=== PATIENT | male | born 1980 | race Caucasian/White ===

== ENCOUNTER 2017-02-20 09:31 | Observation (INO) | payer BC, OTHER ==
[~2017-02-20] VITALS: Ht 188 cm; Wt 170.0 kg
[~2017-02-20 09:31] MED LIST: CYCL-36 PO; IBUP-232 PO; LORT5TAB PO; Z.0.NO CURRENT MEDS
[2017-02-20 09:32] VITALS: BP 186/86; PULSE 56; RESP 20; TEMP 98.8; O2SAT 100
--- NOTE | 2017-02-20 09:40 | PD ---
HPI Chief Complaint: Cardiac Complaint Time Seen by Provider: 09:39 Travel History International Travel<30 days: No Contact w/Intl Traveler<30days: No Traveled to known affect area: No History of Present Illness HPI 36-year-old male came to the emergency room with history of left-sided chest pain on and off since 6:30 AM this morning. Patient is describing the pain as a sharp pulsating pain that comes and goes frequently lasting for a few seconds. No radiation of the pain. Patient is a smoker. Says the pain is slowly becoming more and more frequent. He's never had this kind of pain before. Blood pressure is stable. He is not on any medications. Patient was concerned because he has a strong family history of coronary artery disease including his father who had an KS at a very young age. Never had any coronary artery disease workup. No recent long distance travel or any prolonged immobilization due to surgery or otherwise. No past history of DVT or PE. No aggravating or relieving factor identified for the pain. [facility] Past Medical History Narrative Medical List of his past medical, surgical, social and family history is reviewed from the nursing note. Diminished Hearing: No Social History Alcohol Use: Yes (COUPLE TIMES PER WEEK) Tobacco Use: Yes (1 PACK PER WEEK) Substance Use: No Allergies-Medications (Allergen,Severity, Reaction): Coded Allergies: No Known Allergies (Verified , 02/20/17) Comments No known drug allergies. Reported Meds & Prescriptions Reported Meds & Active Scripts Active No Active Prescriptions or Reported Medications Narrative Medication List of his home medications reviewed from the nursing note Review of Systems Except as stated in HPI: all other systems reviewed are Neg Physical Exam Narrative GENERAL: Awake, alert, morbidly obese, anxious SKIN: Focused skin assessment warm/dry. HEAD: Atraumatic. Normocephalic. EYES: Pupils equal and round. No scleral icterus. No injection or drainage. ENT: No nasal bleeding or discharge. Mucous membranes pink and moist. NECK: Trachea midline. No JVD. CARDIOVASCULAR: Regular rate and rhythm. No murmur appreciated. RESPIRATORY: No accessory muscle use. Clear to auscultation. Breath sounds equal bilaterally. GASTROINTESTINAL: Abdomen soft, non-tender, nondistended. Hepatic and splenic margins not palpable. MUSCULOSKELETAL: No obvious deformities. No clubbing. No cyanosis. No edema. NEUROLOGICAL: Awake and alert. No obvious cranial nerve deficits. Motor grossly within normal limits. Normal speech. PSYCHIATRIC: Appropriate mood and affect; insight and judgment normal. Data Data Last Documented VS Vital Signs Date Time Temp Pulse Resp B/P Pulse Ox O2 Delivery O2 Flow Rate FiO2 02/20/17 09:54 98 Room Air 02/20/17 09:32 98.8 56 20 186/86 Orders Electrocardiogram (02/20/17 09:52) Basic Metabolic Panel (Bmp) (02/20/17 09:52) Ckmb (Isoenzyme) Profile (02/20/17 09:52) Complete Blood Count With Diff (02/20/17 09:52) Magnesium (Mg) (02/20/17 09:52) Prothrombin Time / Inr (Pt) (02/20/17 09:52) Act Partial Throm Time (Ptt) (02/20/17 09:52) Troponin I (02/20/17 09:52) Chest, Single Ap (02/20/17 09:52) Ecg Monitoring (02/20/17 09:52) Bilateral Bp Monitoring (02/20/17 09:52) Iv Access Insert/Monitor (02/20/17 09:52) Oximetry (02/20/17 09:52) Oxygen Administration (02/20/17 09:52) Aspirin Chew (Aspirin Chew) (02/20/17 10:00) Sodium Chloride 0.9% Flush (Ns Flush) (02/20/17 10:00) D-Dimer (02/20/17 09:53) Admit Order (Ed Use Only) (02/20/17 11:04) Labs Laboratory Tests Test 02/20/17 09:55 White Blood Count 7.0 TH/MM3 Red Blood Count 5.45 MIL/MM3 Hemoglobin 15.0 GM/DL Hematocrit 44.1 % Mean Corpuscular Volume 80.9 FL Mean Corpuscular Hemoglobin 27.5 PG Mean Corpuscular Hemoglobin 34.0 % Concent Red Cell Distribution Width 12.9 % Platelet Count 170 TH/MM3 Mean Platelet Volume 8.9 FL Neutrophils (%) (Auto) 58.9 % Lymphocytes (%) (Auto) 26.9 % Monocytes (%) (Auto) 9.1 % Eosinophils (%) (Auto) 4.6 % Basophils (%) (Auto) 0.5 % Neutrophils # (Auto) 4.1 TH/MM3 Lymphocytes # (Auto) 1.9 TH/MM3 Monocytes # (Auto) 0.6 TH/MM3 Eosinophils # (Auto) 0.3 TH/MM3 Basophils # (Auto) 0.0 TH/MM3 CBC Comment DIFF FINAL Differential Comment Prothrombin Time 10.6 SEC Prothromb Time International 1.0 RATIO Ratio Activated Partial 27.6 SEC Thromboplast Time D-Dimer Quantitative (PE/DVT) 0.25 MG/L FEU Sodium Level 140 MEQ/L Potassium Level 4.1 MEQ/L Chloride Level 106 MEQ/L Carbon Dioxide Level 25.7 MEQ/L Anion Gap 8 MEQ/L Blood Urea Nitrogen 14 MG/DL Creatinine 1.03 MG/DL Estimat Glomerular Filtration 81 ML/MIN Rate Random Glucose 99 MG/DL Calcium Level 8.9 MG/DL Magnesium Level 2.3 MG/DL Total Creatine Kinase 93 U/L Troponin I LESS THAN 0.02 NG/ML MDM Medical Decision Making Medical Screen Exam Complete: Yes Emergency Medical Condition: Yes Medical Record Reviewed: Yes Interpretation(s) Twelve-lead EKG was reviewed by me. Normal sinus rhythm, normal axis, bradycardia, nonspecific ST-T wave changes. Heart rate of 51 bpm. Differential Diagnosis ACS, non-STEMI, nonspecific chest pain, PE Narrative Course 11 AM blood tests and chest x-ray results are back. Troponin is negative. Patient was given 2 baby aspirin's. Given his risk factor which is family history, smoking and morbid obesity I would like to admit this patient to the chest pain center to be ruled out. This was discussed with the patient and he is agreeable to the plan. Discussion regarding smoking cessation was done as well and patient agrees that he needs to quit smoking. Procedures EKG Prior to Arrival: No Diagnosis Primary Impression: Chest pain Qualified Code: R07.9 - Chest pain, unspecified type Additional Impression: Morbid obesity with BMI of 45.0-49.9, adult Admitting Information Admitting Physician Requests: Observation Scripts No Active Prescriptions or Reported Meds Ceci Li MD Feb 20, 2017 09:39
[2017-02-20 09:54] VITALS: O2SAT 98
[2017-02-20] MEDS ORDERED: ASPIRIN 81 MG CHEW TAB PO ONE (10:00)
[2017-02-20] MEDS ORDERED: SODIUM CHLORIDE 0.9% FLUSH 10 ML FLUSH IVF PRN (10:00)
[2017-02-20 10:22] LABS: AUTOMATED NEUTROPHIL # 4.1 TH/MM3 (1.8-7.7); BASOPHIL % 0.5 % (0.0-2.0); EOSINOPHIL # 0.3 TH/MM3 (0-0.4); EOSINOPHIL % 4.6 % (0.0-4.0); HEMATOCRIT 44.1 % (39.0-51.0); HEMO FLAGS DIFF FINAL; LYMPH % 26.9 % (9.0-44.0); LYMPHOCYTE # 1.9 TH/MM3 (1.0-4.8); MEAN CELL VOLUME 80.9 FL (80.0-100.0); MEAN CORPUSCULAR HEMOGLOBIN 27.5 PG (27.0-34.0); MONO % 9.1 % (0.0-8.0); NEUT % 58.9 % (16.0-70.0); PLATELET COUNT 170 TH/MM3 (150-450); RED BLOOD COUNT 5.45 MIL/MM3 (4.50-5.90); RED CELL DISTRIBUTION WIDTH 12.9 % (11.6-17.2)
--- NOTE | 2017-02-20 10:23 | RADRPT ---
EXAM DATE/TIME: 02/20/2017 10:05 [facility] COMPARISON: No previous studies available for comparison. INDICATIONS : Chest pain. MEDICAL HISTORY : None. SURGICAL HISTORY : None. ENCOUNTER: Initial ACUITY: 1 day PAIN SCORE: 5/10 LOCATION: Bilateral chest FINDINGS: Heart is enlarged. Pulmonary vascularity is normal. There is no alveolar consolidation, pleural eff usion or pneumothorax. CONCLUSION: 1. Cardiomegaly, abnormal in a 36 year-old. 2. There is no overt congestive failure. Naun Wyatt MD FACR on February 20, 2017 at 10:17 Board Certified Radiologist. This report was verified electronically.
[2017-02-20 10:32] LABS: APTT (PATIENT) 27.6 SEC (24.3-30.1); PROTHROMBIN TIME - PATIENT 10.6 SEC (9.8-11.6)
[2017-02-20 10:34] LABS: ANION GAP 8 MEQ/L (5-15); BICARBONATE 25.7 MEQ/L (21.0-32.0); BLOOD UREA NITROGEN 14 MG/DL (7-18); CHLORIDE 106 MEQ/L (98-107); GLOMERULAR FILTRATION RATE 81 ML/MIN (>89); MAGNESIUM 2.3 MG/DL (1.5-2.5); POTASSIUM 4.1 MEQ/L (3.5-5.1); SODIUM (NA) 140 MEQ/L (136-145)
[2017-02-20 10:49] LABS: CREATINE KINASE 93 U/L (39-308)
[2017-02-20 11:08] VITALS: BP 151/80; PULSE 55; RESP 18; O2SAT 97
[2017-02-20] MEDS ORDERED: ACETAMINOPHEN/HYDROcodone 325 MG/7.5 MG TAB PO PRN (11:30)
[2017-02-20] MEDS ORDERED: SODIUM CHLORIDE 0.9% FLUSH 5 ML FLUSH IVF PRN (11:30)
[2017-02-20] MEDS ORDERED: ACETAMINOPHEN 500 MG CPLT PO PRN (11:30)
[2017-02-20] MEDS ORDERED: ONDANSETRON HCL 4 MG/2 ML VIAL IV PRN (11:30)
--- NOTE | 2017-02-20 11:44 | HHI.HP ---
HPI Primary Care Physician Dalton Bedolla Chief Complaint Chest pain History of Present Illness This is a 36-year-old male that presents to ED via private vehicle with his with a complaint of a left-sided chest discomfort that is been intermittent since about 6:30 this morning. He describes a left-sided dull discomfort lasts a second but was reoccurring about every 5 minutes until about 8:30 this morning which time his recurring little more frequently. It no associated shortness breath, nausea, or diaphoresis. He states he has family history of heart disease and became concerned and came to the ED. Denies recent illnesses. Denies fevers or chills. He has not had this before. Cannot recall prior stress testing. Review of Systems General: Patient denies fevers, chills recent, and recent travel HEENT: Patient denies headache, sore throat, difficulty swallowing. Cardiovascular: Has the chest discomfort as mentioned above. Denies sensation of heart beating rapidly or irregularly. No syncope. Denies diaphoresis. Respiratory: Denies shortness of breath or inspirational chest discomfort. Denies coughing wheezing or hemoptysis. GI: Patient denies nausea, vomiting, diarrhea, abdominal pain, bloody stools. Musculoskeletal: Patient denies joint pain or edema. Denies calf pain or edema. Neurovascular: Patient denies numbness, tingling, weakness in extremities. Denies headache. Endocrine: Denies polyuria and polydipsia. Hematologic: Denies easy bruising. Skin: Denies rash or itching. Past Family Social History Allergies: Coded Allergies: No Known Allergies (Verified , 02/20/17) Past Medical History Hypertension however he states that he stopped taking medicine a couple years ago. He was on a diuretic. Tobacco abuse. States he has not had his lipids checked in a couple years but at that time he did not have hyperlipidemia. Denies diabetes and CAD. Past Surgical History Denies Reported Medications Reported Meds & Active Scripts Active No Active Prescriptions or Reported Medications Active Ordered Medications Current Medications Medications (Trade) Dose Ordered Sig/Ravi Route Start Time Stop Time Status Last Admin (NS Flush) 2 ml UNSCH PRN IVF 02/20/17 10:00 (NS Flush) 2 ml UNSCH PRN IVF 02/20/17 11:30 UNV (NS Flush) 2 ml BID IVF 02/20/17 21:00 UNV (Tylenol) 500 mg Q4H PRN PO 02/20/17 11:30 UNV ([place] 7.5-325 Mg) 1 tab Q4H PRN PO 02/20/17 11:30 UNV (Zofran Inj) 4 mg Q6H PRN IV 02/20/17 11:30 UNV (Aspirin) 325 mg DAILY PO 02/21/17 09:00 UNV Family History States that his father had an HI in his 40s. He has had a stent. Social History Patient for the last 3 months of been smoking about 1 pack of cigarettes per week but prior that he smoked one pack of cigarettes daily for 10 years. He denies illicit drugs. Has occasional alcohol. He works in [employer]. He is . Physical Exam Vital Signs Vital Signs Date Time Temp Pulse Resp B/P Pulse Ox O2 Delivery O2 Flow Rate FiO2 02/20/17 11:08 55 18 151/80 97 02/20/17 09:54 98 Room Air 02/20/17 09:54 98 Room Air 02/20/17 09:32 98.8 56 20 186/86 100 Room Air Physical Exam GENERAL: This is a well-nourished, well-developed patient, in no apparent distress. Patient speaks in clear complete sentences. Patient is pleasant. Patient is obese at 170 kg. His is at the bedside as well. HEENT: Head is atraumatic and normocephalic. Neck is supple without lymphadenopathy and trachea is midline. No JVD or carotid bruits. CARDIOVASCULAR: Regular rate and rhythm without murmurs, gallops, or rubs. RESPIRATORY: Clear to auscultation. Breath sounds equal bilaterally. No wheezes , rales, or rhonchi. Chest wall is nontender. No use of accessory muscles. GASTROINTESTINAL: Abdomen is nontender, nondistended. Abdomen soft. No obvious pulsatile mass or bruit. No CVA tenderness. Strong femoral pulses bilaterally. Normal bowel sounds in all quadrants. MUSCULOSKELETAL: Patient is moving upper and lower extremities freely. No calf tenderness or edema, no Homans sign. Strong pulses in upper and lower extremities. NEUROLOGICAL: Patient is alert and oriented. Cranial nerves 2-12 are grossly intact. No focal deficits and speech is clear. SKIN: No rash and turgor is normal. Laboratory Laboratory Tests Test 02/20/17 09:55 White Blood Count 7.0 Red Blood Count 5.45 Hemoglobin 15.0 Hematocrit 44.1 Mean Corpuscular Volume 80.9 Mean Corpuscular Hemoglobin 27.5 Mean Corpuscular Hemoglobin 34.0 Concent Red Cell Distribution Width 12.9 Platelet Count 170 Mean Platelet Volume 8.9 Neutrophils (%) (Auto) 58.9 Lymphocytes (%) (Auto) 26.9 Monocytes (%) (Auto) 9.1 Eosinophils (%) (Auto) 4.6 Basophils (%) (Auto) 0.5 Neutrophils # (Auto) 4.1 Lymphocytes # (Auto) 1.9 Monocytes # (Auto) 0.6 Eosinophils # (Auto) 0.3 Basophils # (Auto) 0.0 CBC Comment DIFF FINAL Differential Comment Prothrombin Time 10.6 Prothromb Time International 1.0 Ratio Activated Partial 27.6 Thromboplast Time D-Dimer Quantitative (PE/DVT) 0.25 Sodium Level 140 Potassium Level 4.1 Chloride Level 106 Carbon Dioxide Level 25.7 Anion Gap 8 Blood Urea Nitrogen 14 Creatinine 1.03 Estimat Glomerular Filtration 81 Rate Random Glucose 99 Calcium Level 8.9 Magnesium Level 2.3 Total Creatine Kinase 93 Troponin I LESS THAN 0.02 Result Diagram: 02/20/1755 02/20/17 0955 Imaging Chest x-ray was read by radiologist as cardiomegaly. No heart failure noted. This was a single view portable chest x-ray. Course Initial EKG is sinus bradycardia with rate of 51. No significant ST segment depressions or elevations. Assessment and Plan Assessment and Plan * Atypical chest pain: Patient's discomfort has been intermittent lasting a second at a time. This is atypical. First troponin is normal. EKG is nonischemic. He will undergo a Jose protocol ETT and be seen by Dr. Martínez in the chest pain center. He'll be discharged home if the stress test is nonischemic. * Hypertension: We'll continue to monitor. Is not a medication 2 years. * Tobacco abuse: Patient has been counseled on the importance of smoking cessation. * Obesity: Patient has been counseled on importance of diet, exercise, and weight loss. Patient is stable at this time. He is agreeable to this plan. Wyatt Amaya Feb 20, 2017 11:44
--- NOTE | 2017-02-20 12:50 | TR ---
Date Performed: 02/20/2017 Time Performed: 11:59:26 DOCTOR: Chris Martínez DRUG LIST: CLINICAL HISTORY: REASON FOR TEST: Chest pain /RO ACS REASON FOR ENDING: OBSERVATION: CONCLUSION: YEIMI PROTOCOL. NO CP. TEST STOPPED AFTER EXCEEDING GOAL HR SECONDARY TO SOB AND LEG FATIGUE. HYPERTENSIVE RESPONSE TO EXERCISE. FAIR EXERCISE TOLERANCE. RARE PVCs & RARE PACs WERE NOTE D. ECG TRACINGS WERE NEGATIVE FOR ISCHEMIC CHANGES. RECOVERY WAS QUICK AND UNEVENTFUL WITH RESOLUTIO N OF SHORTNESS OF BREATH, SYSTOLIC BLOOD PRESSURE REMAINED MILDLY ELEVATED. Maximum UQ=823 % Max HR Achieved=92.0% Maximum AA=110/96 Total Exercise Time=7:02COMMENTS: CONCLUSION: Normal exercise t readmill. No evidence of ischemia.
--- NOTE | 2017-02-20 13:50 | RADRPT ---
EXAM DATE/TIME: 02/20/2017 13:41 [facility] COMPARISON: No previous studies available for comparison. INDICATIONS : Chest pain. MEDICAL HISTORY : None. SURGICAL HISTORY : None. ENCOUNTER: Initial ACUITY: 1 day PAIN SCORE: Non-responsive. LOCATION: Left chest FINDINGS: PA and lateral views of the chest demonstrate the lungs to be symmetrically aerated without evidence of mass, infiltrate or effusion. The cardiomediastinal contours are unremarkable. Osseous structure s are intact. CONCLUSION: No acute disease. Naun Wyatt MD FACR on February 20, 2017 at 13:47 Board Certified Radiologist. This report was verified electronically.
[2017-02-20 13:54] LABS: CREATINE KINASE 82 U/L (39-308)
--- NOTE | 2017-02-20 14:16 | EKG ---
Date Performed: 02/20/2017 Time Performed: 09:43:46 PTAGE: 36 years EKG: SINUS BRADYCARDIA BORDERLINE ECG NO PREVIOUS TRACING DOCTOR: Chris Martínez Interpretating Date/Time 02/20/2017 14:15:46
--- NOTE | 2017-02-20 14:28 | EKG ---
Date Performed: 02/20/2017 Time Performed: 13:19:33 PTAGE: 36 years EKG: SINUS BRADYCARDIA MODERATE INTRAVENTRICULAR CONDUCTION DELAY BORDERLINE ECG NO PREVIOUS TRACING DOCTOR: Chris Martínez Interpretating Date/Time 02/20/2017 14:27:11
[2017-02-20 15:42] VITALS: BP 135/68; PULSE 61; RESP 18; TEMP 98.2; O2SAT 98
--- NOTE | 2017-02-20 16:20 | HHI.DCPOC ---
Discharge Care Plan Diagnosis: (1) Chest pain (2) Tobacco abuse (3) Obesity Goals to Promote Your Health * To prevent worsening of your condition and complications * To maintain your health at the optimal level Directions to Meet Your Goals Take your medications as prescribed Follow your dietary instruction Follow activity as directed Keep your appointments as scheduled Take your immunizations and boosters as scheduled If your symptoms worsen call your PCP, if no PCP go to Urgent Care Center or Emergency Room Smoking is Dangerous to Your Health. Avoid second hand smoke Call the 24-hour hour crisis hotline for domestic abuse at Wyatt Amaya Feb 20, 2017 16:20
[2017-02-20 17:14] LABS: CREATINE KINASE 80 U/L (39-308)
[2017-02-20] MEDS ORDERED: SODIUM CHLORIDE 0.9% FLUSH 5 ML FLUSH IVF SCH (21:00)
--- NOTE | 2017-02-20 21:07 | EKG ---
Date Performed: 02/20/2017 Time Performed: 16:18:11 PTAGE: 36 years EKG: SINUS BRADYCARDIA MODERATE INTRAVENTRICULAR CONDUCTION DELAY BORDERLINE ECG PREVIOUS TRACING : 02/20/2017 13.19 DOCTOR: Chris Martínez Interpretating Date/Time 02/20/2017 21:06:16
[2017-02-21] MEDS ORDERED: ASPIRIN 325 MG TAB PO SCH (09:00)
== END 2017-02-20 19:55 | disposition home or self-care (01) ==
LOC: NEPE 09:31 → NEDA 11:06 → NEPGCP 12:18
PROVIDERS: ADMIT Family Medicine; ATTEND Family Medicine
DX: R07.89 Other chest pain (principal); I10 Essential (primary) hypertension; E66.01 Morbid (severe) obesity due to excess calories; F17.210 Nicotine dependence, cigarettes, uncomplicated; Z68.42 Body mass index [BMI] 45.0-49.9, adult; Z82.49 Family history of ischemic heart disease and other diseases of the circulatory system
CPT/HCPCS: 71010; 71020; 80048; 82550; 83735; 84484; 85025; 85379; 85610; 85730; 93005; 93017; 99285; G0378